=== PATIENT | female | born 1960 | race Caucasian/White ===

== ENCOUNTER 2024-07-30 04:50 | Day surgery (SDC) | payer MEDICARE, SELFPAY ==
[2024-07-20 12:49] VITALS: BMI 28.1
--- NOTE | 2024-07-20 13:49 | PC.NURSE ---
Report to the Outpatient Waiting Room, entrance under the green pavilion located off [facility], at time _0615AM on date 07/30/24___. Planned Procedure Time: ___0815AM .? Time changes happen often and if your time is changed the preop area will call you the afternoon before. - You and your visitor will be asked to self-screen and do not enter if you have any COVID symptoms. Please call surgeon if you need to reschedule. - A mask is optional within the hospital at this time. Patients may have clear liquids (water, carbonated beverages, clear teas, apple juice) until 3 hours prior to surgery with a maximum of 20 ounces. - No food from midnight until time of surgery and no smoking. Take only the following medications with a SIP of water on the morning of surgery: ____NONE-PT STATE SHE WILL HOLD MEDS UNTIL RETURN HOME DO NOT STOP ANY OF YOUR OTHER PRESCRIPTION MEDICATIONS PRIOR TO SURGERY EXCEPT THE FOLLOWING Medications to discontinue per physician ____VITAMINS____WILL SWITCH PRN MOTRIN TO TYLENOL PRN Date to take last dose___07/27/24 Please no make-up, nail ukrainian, hairspray, perfume, deodorant, or body powder the day of surgery.? No jewelry (including any body piercings) or valuables the day of surgery, leave them at home.? Please take a shower or bath the night before, or the morning of, surgery with an antibacterial soap.? Wear comfortable, loose fitting clothing.? Children are encouraged to wear pajamas. - Jewelry must be removed prior to entering the operating room.? Rings and piercings that are not removed may be cut off. - The hospital will not accept responsibility for valuables.? - Please leave all valuables, including medications, at home the day of surgery. If you are going home after surgery, a licensed canal driver must drive you home.? - NO public transportation without another adult if you receive anesthesia. - We recommend that an adult stay with you for 24 hours following discharge. - We also recommend that you do not drive, make important decision, drink alcoholic beverages, or take any drugs that were not prescribed by your health care provider for at least 24 hours after your discharge time. Follow any additional instructions given to you from your surgeon. Telephone instructions given to __ROBYN and asked if any additional questions and then verbalized understanding. Patient advised to call surgeon office or pre surgery nurse liaison [phone] if any additional questions.
--- NOTE | 2024-07-25 17:27 | PM.IMHP ---
H&P: HPI History of Present Illness Date/Time: 07/25/24 17:27 Chief Complaint: urge incontinence Narrative: underwent a trial of sacral neuromodulation. Greater than 50% improved Review of Systems Review of Systems: All systems reviewed & are unremarkable except as noted in HPI and below PMFSH Social History Social History Smoking packs per day: 2.5 Smoking cigarettes per day: 50.0 Years smoked: 40 Smoking pack-years: 100.00 Smoking status: Former smoker Tobacco type: cigarettes Alcohol intake: never Substance use: never Last use: 10/27/2019 Living arrangements: with family Spiritual care concerns: No Meds Home Medications and Allergies Home Medications Medication Instructions Recorded Confirmed Type B-complex with vitamin C 1 cap PO DAILY 07/20/24 07/20/24 History ascorbic acid (vitamin C) 1,000 mg 1,000 mg PO DAILY 07/20/24 07/20/24 History capsule baclofen 10 mg tablet 10 mg PO HS 07/20/24 07/20/24 History cholecalciferol (vitamin D3) 125 125 mcg PO DAILY 07/20/24 07/20/24 History mcg (5,000 unit) tablet (Vitamin D3) dimethyl fumarate 240 mg 240 mg PO QAM 07/20/24 07/20/24 History capsule,delayed release (Tecfidera) duloxetine 60 mg capsule,delayed 60 mg PO BID 07/20/24 07/20/24 History release ibuprofen 800 mg tablet 800 mg PO Q8H 07/20/24 07/20/24 History levothyroxine 112 mcg tablet 112 mcg PO DAILY 07/20/24 07/20/24 History magnesium gluconate 30 mg (550 mg) 30 mg PO DAILY 07/20/24 07/20/24 History tablet omeprazole 20 mg capsule,delayed 20 mg PO DAILY 07/20/24 07/20/24 History release Allergies Allergy/AdvReac Type Severity Reaction Status Date / Time Penicillins Allergy Intermediate Itching Verified 07/20/24 13:33 Sulfa (Sulfonamide Allergy Intermediate Swelling Verified 07/20/24 13:33 Antibiotics) of Lip/Tongue/Throat celecoxib AdvReac Intermediate Palpitation Verified 07/20/24 13:33 s Exam Narrative: no acute distress normal breathing alert and oriented x3 Assessment and Plan Assessment and plan (1) Urge incontinence: Code(s): N39.41 - Urge incontinence Status: Acute Assessment and Plan: InterStim implantation
--- NOTE | ~2024-07-30 | XR_ITS ---
EXAMINATION: XR fluoroscopy no charge DATE: 07/30/2024 08:50 INDICATION: Neurostim implant. TECHNIQUE: 3 intraoperative fluoroscopic views of the pelvis were obtained. I was not present. Fluoro scopy exposure time was 55 seconds. COMPARISON: None. FINDINGS: There is no side marker. There is an electrode in an S3 neural foramen. IMPRESSION: 1. Electrode in an S3 neural foramen. Reviewed, dictated and finalized at location A.
[2024-07-30 06:31] VITALS: BP 109/65; PULSE 68; RESP 16; TEMP 36.1; O2SAT 97
[2024-07-30] MEDS: LACTATED RINGERS 1,000 ML 30 ML IV CONT (07:00)
[2024-07-30 07:17] VITALS: BMI 27.6
--- NOTE | 2024-07-30 07:17 | WPDHPUPDATE1 ---
History and Physical Update Update Date/Time: 07/30/24 07:17 History and Physical has been reviewed, including an updated exam of the patient. There are NO changes in the patient's condition. Risks, benefits, and alternatives have been discussed and questions answered. Patient agrees to proceed with procedure.
--- NOTE | 2024-07-30 07:52 | WPDANESEPPF ---
Anes - Initial Pre Proc Eval Procedure: Operation Date: 07/30/24 08:15 Proposed Procedures p Neurostimulator Implant Phase 2 - Vinod Peterson MD Date/Time: 07/30/24 07:52 Surgeon: Vinod Peterson MD Pre Op Diagnosis: diane inconnirmala Patient Data Age: 64 Gender: F Height: 1.63 m Weight: 73.05 kg Last Vital Signs Temp 97.0 F L 07/30/24 06:31 Pulse 68 07/30/24 06:31 Resp 16 07/30/24 06:31 BP 109/65 07/30/24 06:31 Pulse Ox 97 07/30/24 06:31 O2 Del Method Room Air 07/30/24 06:31 Allergies Allergy/AdvReac Type Severity Reaction Status Date / Time Penicillins Allergy Intermediate Itching Verified 07/30/24 07:17 Sulfa (Sulfonamide Allergy Intermediate Swelling Verified 07/30/24 07:17 Antibiotics) of Lip/Tongue/Throat celecoxib AdvReac Intermediate Palpitation Verified 07/30/24 07:17 s Home Medications Medication Instructions Recorded Confirmed Type B-complex with vitamin C 1 cap PO DAILY 07/20/24 07/30/24 History ascorbic acid (vitamin C) 1,000 mg 1,000 mg PO DAILY 07/20/24 07/30/24 History capsule baclofen 10 mg tablet 10 mg PO HS 07/20/24 07/20/24 History cholecalciferol (vitamin D3) 125 125 mcg PO DAILY 07/20/24 07/30/24 History mcg (5,000 unit) tablet (Vitamin D3) dimethyl fumarate 240 mg 240 mg PO QAM 07/20/24 07/20/24 History capsule,delayed release (Tecfidera) duloxetine 60 mg capsule,delayed 60 mg PO BID 07/20/24 07/20/24 History release ibuprofen 800 mg tablet 800 mg PO Q8H 07/20/24 07/20/24 History levothyroxine 112 mcg tablet 112 mcg PO DAILY 07/20/24 07/20/24 History magnesium gluconate 30 mg (550 mg) 30 mg PO DAILY 07/20/24 07/30/24 History tablet omeprazole 20 mg capsule,delayed 20 mg PO DAILY 07/20/24 07/20/24 History release hydrocodone 5 mg-acetaminophen 325 1 tablet PO Q6H PRN pain #20 tabs 10/04/24 Rx mg tablet Patient hx anesthesia problems: none Family hx anesthesia problems: none Results Review: All pre-operative results and documents have been reviewed as part of the pre-operative evaluation. [facility] Social History Social History Smoking packs per day: 2.5 Smoking cigarettes per day: 50.0 Years smoked: 40 Smoking pack-years: 100.00 Smoking status: Former smoker Tobacco type: cigarettes Alcohol intake: never Substance use: never Last use: 10/27/2019 Living arrangements: with family Spiritual care concerns: No Anes - Eval Final PreProcedure Day of Procedure 07/30/24 07:52 Patient weight: normal Heart: regular rate and rhythm Lungs: clear to auscultation Airway: Mallampati scale class II and special considerations (Missing R lower tooth. ) Neurological: alert and oriented Last oral intake: >/= 8 hours ASA classification: III Emergent: no Anesthetic plan: proceed Anesthesia type and monitoring: general GIVS and standard monitoring Results Review: All pre-operative results and documents have been reviewed as part of the pre-operative evaluation. Long time ex smoker, quit 2019. MS is stable of recent. Informed Consent: The patient's anesthetic plan and its attendant risks and benefits were discussed with the patient/family/POA. Questions were solicited and answers provided to the satisfaction of the patient/family/POA.
[2024-07-30] MEDS: ceFAZolin 2 GM/D5W 50 ML 2 GM/50 ML BAG IVPB (08:14)
[2024-07-30] MEDS: BUPIVACAINE/EPINEPHRINE 0.5% 50 ML VIAL 20 ML INFILTRATE (08:31)
[2024-07-30 08:52] VITALS: BP 120/63; PULSE 81; RESP 16; O2SAT 96
--- NOTE | 2024-07-30 08:59 | W.PM.PROC2 ---
Procedure Note - Detailed Date of Procedure 07/30/24 Pre-op Diagnosis urge incontininece Post-op Diagnosis Same Procedure Performed Implantation of sacral lead 56168 Placement of implantable pulse generator 31376 Complex neurostimulator programming impedance check 95374 Surgeon Vinod Peterson MD Anesthesia MAC and Local Indications This is a patient with refractory urge urinary incontinence. They have undergone a successful trial of sacral nerve stimulation. They present today for permanent implantation. They understand the risks of bleeding, infection, decreased efficacy, need for revision and battery changes. They agree to proceed Findings See dictated Description of Procedure They were correctly identified and informed consent was obtained. There brought to the operating room. There placed in the prone position. There given appropriate perioperative antibiotics. A time-out performed. I used fluoroscopy to mariia out my sacral landmarks in the AP and the lateral orientation. I anesthetized the skin. I entered the S3 foramen. I monitored the needle with fluoroscopy. I got appropriate Radha and toe response at a low threshold. I made a skin dharmesh. I placed a stylet. I placed the lead introducer sheath. I then placed and deployed to my lead. I got appropriate responses again at a low threshold. I marked out the site of the pulse generator. I anesthetized the skin and made that incision. I created a subcutaneous pocket to house the pulse generator. I tunneled the lead towards this pocket. Appropriate connections were made between the lead and the battery. It was placed in the pocket. It was programmed and impedances were checked and found to be normal. I irrigated out all wounds. I ensured hemostasis. I closed the subcutaneous tissues with 2 Vicryl. I closed the skin with 4 0 Vicryl. Glue was applied. There then awakened and transferred to the PACU in stable condition. Implants Sacral neurostimulator Estimated Blood Loss 5 Drains No Packing No Pathology None sent Condition Stable Disposition PACU
[2024-07-30 09:20] VITALS: BP 116/74; PULSE 68; RESP 20
[2024-07-30 09:35] VITALS: BP 117/77; PULSE 63; RESP 20
== END 2024-07-30 09:49 | disposition home or self-care (01) ==
PROVIDERS: Visit Provider Urology
PROC: (CPT 64561; principal; 2024-07-30 08:15)
DX: N39.41 Urge incontinence (principal); Z79.1 Long term (current) use of non-steroidal anti-inflammatories (NSAID); Z79.891 Long term (current) use of opiate analgesic; Z87.891 Personal history of nicotine dependence
CPT/HCPCS: 64561; 64590; 99199; C1767; C1778; C1787; J0690; J2003; J2004; J2250; J2405; J2704; J3010; J7120